=== PATIENT | female | born 1945 | race Caucasian/White ===

== ENCOUNTER 2018-03-02 12:46 | Outpatient (CLI) | payer MEDICARE, OTHER | END 2018-03-02 12:47 | disposition home or self-care (01) | LOC: BICMAMMO 12:46 | PROVIDERS: ATTEND Internal Medicine | DX: Z12.31 Encounter for screening mammogram for malignant neoplasm of breast (principal); Z80.3 Family history of malignant neoplasm of breast | CPT/HCPCS: 77063; 77067 ==

== ENCOUNTER 2022-03-19 15:12 | Inpatient (IN) | payer OTHER, MEDICARE ==
[2022-03-19] MEDS ORDERED: Morphine 2 MG/ML VIAL ONE ×3 (15:17→15:54)
[2022-03-19] MEDS ORDERED: Ondansetron PF 4 MG/2 ML Vial ONE (15:17)
[2022-03-19] MEDS ORDERED: Ketorolac Tromethamine 30 MG/ML VIAL ONE (15:35)
[2022-03-19 15:41] LABS: #Eosinphils 0.1 thou/uL (0.0-0.7); #Lymphocytes 1.7 thou/uL (1.20-3.40); #Neutrophils 10.4 thou/uL (1.40-6.50); %Basophils 0.1 % (0.0-1.0); %Eosinophils 0.5 % (0.0-10.0); %Lymphocytes 13.2 % (21.0-51.0); %Monocytes 7.3 % (0.0-10.0); %Neutrophils 78.9 % (42.0-75.0); Hemoglobin 12.4 g/dL (12.0-16.0); Mean Corpuscular HGB CONC 32.9 g/dL (32.0-36.0); Mean Corpuscular Hemoglobin 29.9 pg (27.0-31.0); Mean Corpuscular Volume 90.9 fL (78.0-98.0); Mean Platelet Volume 7.5 fL (7.4-10.4); Platelet Count 243 thou/uL (130-400); RBC Distribution Width 12.9 % (11.5-14.5); Red Blood Cell (RBC) Count 4.14 mill/uL (4.20-5.40); White Blood Cell (WBC) Count 13.1 thou/uL (4.8-10.8)
[2022-03-19 16:02] LABS: ALT (SGPT) 11 U/L (8-55); AST (SGOT) 17 U/L (5-34); Albumin 4.1 g/dL (3.4-4.8); Alkaline Phosphatase 54 U/L (40-110); Anion Gap 14 mmol/L (10-20); BUN (Urea Nitrogen) 13 mg/dL (9.8-20.1); Bilirubin, Total 0.6 mg/dL (0.2-1.2); Calc. Creatinine Clearance 0 mL/min (70-130); Calcium 8.9 mg/dL (7.8-10.44); Carbon Dioxide 20 mmol/L (23-31); Chloride 109 mmol/L (98-107); Globulin 2.4 g/dL (2.4-3.5); Glucose 123 mg/dL (83-110); Potassium 4.4 mmol/L (3.5-5.1); Protein, Total 6.5 g/dL (5.8-8.1); Sodium 139 mmol/L (136-145)
[2022-03-19] MEDS ORDERED: hydrALAZINE 20 MG/ML VIAL SLOW IVP PRN (16:37)
[2022-03-19] MEDS ORDERED: Morphine 2 MG/ML VIAL SLOW IVP PRN (16:37)
[2022-03-19] MEDS ORDERED: Promethazine HCl 25 MG/ML VIAL IM PRN (16:37)
[2022-03-19] MEDS ORDERED: Ondansetron PF 4 MG/2 ML Vial IVP PRN (16:37)
[2022-03-19] MEDS ORDERED: Sodium Chloride 0.9% 1,000 ML IV SCH (16:45)
[2022-03-19] MEDS ORDERED: Ketorolac Tromethamine 30 MG/ML VIAL IVP SCH (16:45)
[2022-03-19] MEDS ORDERED: Acetaminophen/Codeine 30-300mg Tablet PO SCH (18:00)
[2022-03-19] MEDS: Acetaminophen 325 MG TAB PO SCH ×2 (18:45→23:44)
[2022-03-19] MEDS: Acetaminophen/Codeine 30-300mg Tablet PO SCH ×2 (18:47→23:45)
[2022-03-19] MEDS ORDERED: Gabapentin 100 MG CAP PO SCH (21:00)
[2022-03-19] MEDS: Famotidine 20 MG TAB PO SCH (21:12)
[2022-03-19] MEDS: Cyclobenzaprine 10 MG TAB PO PRN (21:12)
[2022-03-19 21:20] VITALS: BMI 23.3
[2022-03-19] MEDS: Senokot S 8.6-50 MG TAB PO SCH (21:57)
[2022-03-19] MEDS: Ketorolac Tromethamine 30 MG/ML VIAL IVP SCH (23:43)
[2022-03-20] MEDS: Ketorolac Tromethamine 30 MG/ML VIAL IVP SCH ×4 (06:13→23:40)
[2022-03-20] MEDS: Acetaminophen/Codeine 30-300mg Tablet PO SCH ×4 (06:14→23:39)
[2022-03-20] MEDS: Acetaminophen 325 MG TAB PO SCH ×4 (06:14→23:39)
[2022-03-20] MEDS: Senokot S 8.6-50 MG TAB PO SCH ×2 (09:11→20:49)
[2022-03-20] MEDS: Famotidine 20 MG TAB PO SCH ×2 (09:11→20:49)
[2022-03-20] MEDS: Polyethylene Glycol 3350 17 GM Packet PO SCH (09:11)
[2022-03-20] MEDS: Cyclobenzaprine 10 MG TAB PO PRN (16:51)
[2022-03-21] MEDS: Acetaminophen/Codeine 30-300mg Tablet PO SCH ×3 (05:49→18:04)
[2022-03-21] MEDS: Acetaminophen 325 MG TAB PO SCH ×3 (05:50→18:04)
[2022-03-21] MEDS: Famotidine 20 MG TAB PO SCH ×2 (08:49→20:18)
[2022-03-21] MEDS: Cyclobenzaprine 10 MG TAB PO PRN (08:49)
[2022-03-21] MEDS: Enoxaparin Sodium 40 MG/0.4 ML SYRINGE SC SCH (08:50)
[2022-03-21] MEDS: Polyethylene Glycol 3350 17 GM Packet PO SCH (08:50)
[2022-03-21] MEDS: Senokot S 8.6-50 MG TAB PO SCH ×2 (08:50→20:17)
[2022-03-21] MEDS: Ibuprofen 200 MG TAB PO SCH ×3 (13:48→20:17)
[2022-03-21] MEDS: Gabapentin 100 MG CAP PO SCH (20:18)
[2022-03-22] MEDS: Acetaminophen 325 MG TAB PO SCH ×4 (00:53→18:49)
[2022-03-22] MEDS: Acetaminophen/Codeine 30-300mg Tablet PO SCH ×4 (00:53→18:49)
[2022-03-22] MEDS: Ibuprofen 200 MG TAB PO SCH ×8 (00:53→21:20)
[2022-03-22] MEDS: Enoxaparin Sodium 40 MG/0.4 ML SYRINGE SC SCH (08:51)
[2022-03-22] MEDS: Gabapentin 100 MG CAP PO SCH ×3 (08:51→21:20)
[2022-03-22] MEDS: Famotidine 20 MG TAB PO SCH ×2 (08:51→21:20)
[2022-03-22] MEDS: Senokot S 8.6-50 MG TAB PO SCH ×2 (08:52→21:21)
[2022-03-22] MEDS: Polyethylene Glycol 3350 17 GM Packet PO SCH (08:52)
[2022-03-22] MEDS: Cyclobenzaprine 10 MG TAB PO PRN (21:20)
[2022-03-23] MEDS: Acetaminophen 325 MG TAB PO SCH ×4 (00:58→18:52)
[2022-03-23] MEDS: Acetaminophen/Codeine 30-300mg Tablet PO SCH ×4 (00:58→18:53)
[2022-03-23] MEDS: Gabapentin 100 MG CAP PO SCH ×3 (05:22→21:10)
[2022-03-23] MEDS: Ibuprofen 200 MG TAB PO SCH ×5 (05:23→21:05)
[2022-03-23] MEDS: Polyethylene Glycol 3350 17 GM Packet PO SCH (08:26)
[2022-03-23] MEDS: Senokot S 8.6-50 MG TAB PO SCH ×2 (08:26→21:06)
[2022-03-23] MEDS: Enoxaparin Sodium 40 MG/0.4 ML SYRINGE SC SCH (08:29)
[2022-03-23] MEDS: Famotidine 20 MG TAB PO SCH ×2 (08:29→21:04)
[2022-03-24] MEDS: Ibuprofen 200 MG TAB PO SCH ×5 (01:38→16:53)
[2022-03-24] MEDS: Acetaminophen/Codeine 30-300mg Tablet PO SCH ×4 (01:39→16:54)
[2022-03-24] MEDS: Acetaminophen 325 MG TAB PO SCH ×4 (01:39→16:54)
[2022-03-24] MEDS: Gabapentin 100 MG CAP PO SCH ×3 (05:06→20:55)
[2022-03-24] MEDS: Famotidine 20 MG TAB PO SCH ×2 (08:22→20:56)
[2022-03-24] MEDS: Senokot S 8.6-50 MG TAB PO SCH ×2 (08:23→22:38)
[2022-03-24] MEDS: Polyethylene Glycol 3350 17 GM Packet PO SCH (08:24)
[2022-03-24] MEDS: Enoxaparin Sodium 40 MG/0.4 ML SYRINGE SC SCH (08:24)
[2022-03-24] MEDS ORDERED: Ibuprofen 200 MG TAB PO PRN (20:35)
[2022-03-25] MEDS: Acetaminophen 325 MG TAB PO SCH ×3 (05:17→13:10)
[2022-03-25] MEDS: Acetaminophen/Codeine 30-300mg Tablet PO SCH ×4 (05:19→16:27)
[2022-03-25] MEDS: Gabapentin 100 MG CAP PO SCH ×2 (05:19→08:18)
[2022-03-25] MEDS: Famotidine 20 MG TAB PO SCH (08:17)
[2022-03-25] MEDS: Enoxaparin Sodium 40 MG/0.4 ML SYRINGE SC SCH (08:19)
[2022-03-25] MEDS: Senokot S 8.6-50 MG TAB PO SCH (13:10)
[2022-03-25] MEDS: Polyethylene Glycol 3350 17 GM Packet PO SCH (13:10)
[2022-03-25] MEDS: Cyclobenzaprine 10 MG TAB PO PRN (13:11)
[2022-03-25 16:23] VITALS: BP 121/69; TEMP 99.5
== END 2022-03-25 17:54 | disposition home health service (06) | DRG 563 ==
LOC: ERS 15:12 → SURG A 16:37
PROVIDERS: ADMIT Specialist; ATTEND Surgery
DX: S42.201A Unspecified fracture of upper end of right humerus, initial encounter for closed fracture (principal); W01.198A Fall on same level from slipping, tripping and stumbling with subsequent striking against other object, initial encounter; Z96.652 Presence of left artificial knee joint; Z90.49 Acquired absence of other specified parts of digestive tract; Z90.710 Acquired absence of both cervix and uterus; Z98.51 Tubal ligation status; Z88.8 Allergy status to other drugs, medicaments and biological substances; Z88.5 Allergy status to narcotic agent; Z79.899 Other long term (current) drug therapy
CPT/HCPCS: 29105; 36415; 80053; 84484; 85025; 93005; 96374; 96375; G0390; J1650; J1885; J2270; J2405; J7050

== ENCOUNTER 2022-04-18 15:45 | Outpatient (CLI) | payer MEDICARE | END 2022-04-18 15:46 | disposition home or self-care (01) | LOC: BICRAD 15:45 | PROVIDERS: ATTEND Family Medicine | DX: M25.521 Pain in right elbow (principal) ==

== ENCOUNTER 2023-08-31 09:00 | Outpatient (CLI) | payer MEDICARE ==
[2023-08-31] MEDS ORDERED: Magnevist 469MG/ML 20 ML VIAL ONE (10:02)
== END 2023-08-31 23:59 | disposition home or self-care (01) ==
LOC: MRI 09:00
PROVIDERS: ATTEND Psychiatry & Neurology Neurology
DX: R51.9 Headache, unspecified (principal)
CPT/HCPCS: 70553; A9579

== ENCOUNTER 2025-10-06 08:08 | Outpatient (CLI) | payer MEDICARE | END 2025-10-06 08:09 | disposition home or self-care (01) | LOC: ULT 08:08 | PROVIDERS: ATTEND Internal Medicine Gastroenterology | DX: R10.13 Epigastric pain (principal); R19.7 Diarrhea, unspecified; R10.A2 Flank pain, left side; K82.9 Disease of gallbladder, unspecified | CPT/HCPCS: 76705; 93976 ==